=== PATIENT | male | born 1945 | race Caucasian/White ===

== ENCOUNTER → 2021-07-13 | Outpatient (CLI) | payer MEDICARE, BC | LOC: RAD 13:43 | DX: J32.1 Chronic frontal sinusitis (principal); J32.3 Chronic sphenoidal sinusitis; J32.2 Chronic ethmoidal sinusitis ==

== ENCOUNTER 2023-09-06 12:29 | Inpatient (IN) | payer MEDICARE, BC ==
[~2023-09-06] VITALS: Ht 177.8 cm; Wt 95.5 kg
[2023-09-06 13:36] VITALS: BP 148/76
[2023-09-06] MEDS ORDERED: SOTALOL HYDROCH80 MG PO (13:44)
[2023-09-06] MEDS ORDERED: DOXYCYCLINE HY100 M5 PO (13:45)
[2023-09-06] MEDS ORDERED: IPRATROPIUM BROM3 M1 IH (13:47)
[2023-09-06] MEDS ORDERED: DECADRON 4MG TAB4 MG PO (13:48)
[2023-09-06] MEDS ORDERED: ATORVASTATIN CA80 MG PO (13:49)
[2023-09-06] MEDS ORDERED: FLOMAX0.4 MG PO (13:49)
[2023-09-06] MEDS ORDERED: FUROSEMIDE40 MG PO (13:50)
[2023-09-06] MEDS ORDERED: TRELEGY ELLIPT1 EAC1 IH (13:50)
[2023-09-06] MEDS ORDERED: WARFARIN SOD5 MG PO (13:51)
[2023-09-06] MEDS ORDERED: WARFARIN SODIU2.5 MG PO (13:52)
[2023-09-06] MEDS ORDERED: B12 ACTIVE1000 MCG PO (13:54)
[2023-09-06] MEDS ORDERED: C-10001000 MG PO (13:55)
[2023-09-06] MEDS ORDERED: VITAMIN D3 PO (13:59)
--- NOTE | 2023-09-06 15:00 | NUR ---
Spoke with Lenin Savage, he is a pleasant 77 yo male who lives with his in [place], [place]. he states his pcp is dr. [facility] [phone], Cassandra Consultant is Dr. Gonzalez, Dr. Jenkins ([phone]) is his client services director, Ana Cristina is his reconnaissance man. [phone] [facility] [phone] is his pharmacy.
[2023-09-06 16:49] VITALS: BP 150/71
--- NOTE | 2023-09-06 18:56 | NUR ---
Pt arrived via POV this afternoon. Oriented to room, at bedisde. Oriented to rules, meals, diet. Doing well, resting in chair at side of bed. 02 at 3LNC with bubbler attached. Denies pain. Will give report to nightshift nurse who will resume care.
--- NOTE | 2023-09-06 19:23 | NUR ---
Report received from Amy SIMMS. Patient sitting up in recliner watching TV. A/O x4. Denies pain. Oxygen in place at 3L/NC per home routine. Lungs with crackles bilateral bases. Reports NPC at times. No pedal edema noted. Assessment completed. On isolation for droplet precations and 1500 ML FR.
--- NOTE | 2023-09-06 20:59 | NUR ---
Ambulated with SBA, accompanied by DRAG SAWYER around perimeter of inside of building x2. Gait belt and walker, and portable oxygen used. Gait steady. Tolerated well. No cough or SOA noted.
--- NOTE | 2023-09-06 21:17 | NUR ---
Clean catch UA obtained and taken to lab by MIKE.
--- NOTE | 2023-09-07 05:34 | NUR ---
Rested well per report. AM vital signs taken and PO medication taken at this time. Denies pain. Would like a decongestant. Neb tx taken at this time.
[2023-09-07 06:03] VITALS: BP 150/66
--- NOTE | 2023-09-07 06:58 | NUR ---
Report to Chey SIMMS.
[2023-09-07 07:02] LABS: HEMATOCRIT 36.3 % (42.0-52.0); HEMOGLOBIN 11.7 g/dL (13.5-18.0); MEAN CELL VOLUME 101 fl (78-100); MEAN CORPUSCULAR HEMOGLOBIN 33 pg (27-31); MEAN CORPUSCULAR HGB CONC 32 g/dL (33-37); MEAN PLATELET VOLUME 10.5 fl (7.4-10.4); PLATELET COUNT 215 K/mm3 (130-400); RED BLOOD COUNT 3.58 M/mm3 (4.20-5.60); RED CELL DISTRIBUTION WIDTH 14.2 % (11.5-14.5); WHITE BLOOD COUNT 11.8 K/mm3 (4.8-10.8)
[2023-09-07 07:14] LABS: ALBUMIN 3.5 g/dL (3.4-4.8)
[2023-09-07 07:16] LABS: CALCIUM 8.9 mg/dL (8.3-10.5); PROTHROMBIN TIME 28.5 SECONDS (9.0-12.0)
[2023-09-07 07:17] LABS: TOTAL PROTEIN 7.2 g/dL (6.2-8.1)
[2023-09-07 07:19] LABS: TOTAL BILIRUBIN 0.9 mg/dL (0.2-1.2)
[2023-09-07 07:42] LABS: LYMPHOCYTE 4 % (20-51); MONOCYTE 7 % (3-10); NEUTROPHILS 89 % (42-75)
[2023-09-07 07:42] LABS: URINE APPEARANCE TURBID (CLEAR); URINE COLOR YELLOW (YELLOW)
[2023-09-07 07:43] LABS: PH-URINE 5.5 (5.0 - 8.0); URINE BILIRUBIN NEGATIVE (NEGATIVE); URINE BLOOD NEGATIVE (NEGATIVE); URINE GLUCOSE NEGATIVE (NEGATIVE); URINE KETONE NEGATIVE (NEGATIVE); URINE LEUKOCYTE ESTERASE NEGATIVE (NEGATIVE); URINE NITRATE NEGATIVE (NEGATIVE); URINE PROTEIN(semi-quant) 1+ (NEGATIVE); URINE WBC 0-1 /hpf (0-3)
--- NOTE | 2023-09-07 11:20 | NUR ---
A&Ox4, 3L per NC, no c/o pain or discomfort. Reports he slept well last night. Ambulated from bed to chair and chair in hallway. SBA with gait belt and FWW. Tolerated it well. Swallowed pills whole with water. Encouraged to bring home medication in today. Family plans to deliver med. Chair in locked position. Call light within reach.
[2023-09-07 17:16] VITALS: BP 149/72
--- NOTE | 2023-09-07 21:00 | NUR ---
Patient sitting up in recliner watching TV. Ambulated earlier with TIMBER TREATMENT PLANT OPERATOR in hallway. Gait steady with walker. Denies pain at this time. Alert and oriented x 4.
[2023-09-08 05:07] VITALS: BP 116/57
--- NOTE | 2023-09-08 05:17 | NUR ---
Patient reports he slept well this noc.
[2023-09-08 16:15] VITALS: BP 154/77
--- NOTE | 2023-09-08 19:24 | NUR ---
Report received from Deena SIMMS. Ambulated in halls around inside parameter of building x2 with NAIL KEGGER at shift change. Oxygen in place at 3L/NC. Continues to have exertional dyspnea. Denies pain. Lungs CTA. Assessment completed. CPAP here now and set up for night. Remains on 1500 ML FR. Denies questions, wants or needs. Chair alarm on. Call light in reach.
--- NOTE | 2023-09-09 05:24 | NUR ---
States rested "so so" through the night. Up to recliner at this time. Oxygen in place at 3L/NC. Requests coffee. Last dose of PO Doxycycline administered. Requests flonase at this time and given. "helps get the nasal passages open.". Denies further wants or needs.
[2023-09-09 05:28] VITALS: BP 164/72
--- NOTE | 2023-09-09 06:52 | NUR ---
Report to Alva SIMMS.
--- NOTE | 2023-09-09 08:13 | NUR ---
REPORT FROM JASVIR. PT. UP IN CHAIR FOR BREAKFAST. WOULD LIKE TO WEAR HIS OWN COMPRESSION SOCKS TODAY. REPORTS THAT HE NEEDS TO HAVE A "GOOD" BM. STATES HE HAD A SMALL ONE YESTERDAY. DENIES ANY PAIN.
[2023-09-09 17:28] VITALS: BP 138/69; BP_SYST 136
--- NOTE | 2023-09-09 19:30 | NUR ---
Report received from Alva SIMMS. Ambulated in hallway with MIKE, JOSE, with mask donned. Oxygen, gait belt, walker . Tolerated well, Used personal O2 monitor. SAO2 85% at times with ambulation but recovers quickly. Patient states it does that at times.
--- NOTE | 2023-09-09 21:03 | NUR ---
Sitting up in recliner, legs down, Watching TV. Oxygen in place at 3L/NC. Denies pain. Assessment completed. HS medications and breathing tx taken. Denies wants or needs at this time. Remains on droplet isolation and 1500 ML FR.
[2023-09-10 05:40] VITALS: BP 157/75
--- NOTE | 2023-09-10 06:07 | NUR ---
Rested well with CPAP in place. Up to recliner around 0430 per request. Had shower with SBA of COMPOSITE ASSEMBLER. Oxygen in place while in recliner at 3L/NC. Denies pain.
--- NOTE | 2023-09-10 07:00 | NUR ---
RESUMED CARE FROM CHARLES TAY.
--- NOTE | 2023-09-10 07:09 | NUR ---
Report to Allyssa SIMMS.
--- NOTE | 2023-09-10 10:03 | NUR ---
Phuong Ramirez# [phone]. Pcp is Dr. Rodriguez; Lauren Morris. DPOA -[facility]. DME Via [facility]: oxygen, CPAP and walker, concentatro and portable tank, Plan Home with Home Health.
--- NOTE | 2023-09-10 10:53 | NUR ---
Patient resting in chair with visitor at bedside. Stated no pain, legs bilaterally 2+ edema patient wearing his own antiembolitic stockings. Upper extremeties 1+ edema noted. right sided inspriatory and expiratory wheezes, left lower expiratory wheezes. Left upper clear. Patient in chair visitor at bedside with call light in reach.
--- NOTE | 2023-09-10 14:22 | NUR ---
PATIENT REFUSED GAIT BELT TO BATHROOM. EDUCATION PROVIDED.
--- NOTE | 2023-09-10 15:20 | NUR ---
PER ANANDA WILEY AND INFECTIOUS DISEASE - PATIENT TO COME OFF OF PRECAUTIONS AT THIS TIME DUE TO NO RESPIRATORY SYMTPOMS/
[2023-09-10 17:55] VITALS: BP 153/72
--- NOTE | 2023-09-10 18:18 | NUR ---
PATIENT REFUSED USE OF GAITBELT TO BATHROOM AT THIS TIME. EDUCATION PROVIDED.
--- NOTE | 2023-09-10 19:27 | NUR ---
REPORT TO DEMI COUCH.
--- NOTE | 2023-09-11 01:00 | NUR ---
Pt is very much self care but understands he needs to call for someone to be with him when he needs to stand. CPAP was readied for HS. Neb RX was completed through the flutter valve inspirometer as day shift and other RT's have done at other hospitals. pt was up in chair reading from sabas no complaints. pt does have expiratory\inspiratory wheezes which he is has neb rx for.
[2023-09-11 05:44] VITALS: BP 154/78
--- NOTE | 2023-09-11 07:06 | NUR ---
RESUMED CARE FROM DEMI COUCH.
--- NOTE | 2023-09-11 10:10 | NUR ---
Patient alert and oriented, lung sounds clear excpet for lower right which inspiratory wheezes were noted. Bilateral lower extremeties are 3+ edema, bilateral upper extremeties 1+. Patient states no pain, medications given. Patient in chair with call light in reach.
--- NOTE | 2023-09-11 14:15 | NUR ---
[facility] REPORTS NOTED PATIENT HAVING DESATURATION WITH MOVEMENT TO MID 80s TAKING INCREASED TIME TO RECOVER.
[2023-09-11 17:49] VITALS: BP 161/71
--- NOTE | 2023-09-11 18:58 | NUR ---
REPORT TO CHARLES TAY.
--- NOTE | 2023-09-11 19:28 | NUR ---
Report received from Allyssa SIMMS. Patient assisted to BR and back to bed. A/O x4. Denies pain. Oxygen in place at 3L/NC per home baseline. Assessment completed. Remains on 1500 ML FR. Chair alarm on. Call light in reach.
--- NOTE | 2023-09-12 05:34 | NUR ---
Rested well all night. Up this AM, shaved then to recliner per request. Coffee provided per request. Extension tubing added to oxygen per patient request for showering.
[2023-09-12 06:11] VITALS: BP 152/71
--- NOTE | 2023-09-12 06:56 | NUR ---
Report to Allyssa SIMMS.
--- NOTE | 2023-09-12 10:48 | NUR ---
Patient alert and oriented, medications given, edema 3+ to bilateral extremeties, 1+ to upper extremities. no pain reported, patient in chair with call light in reach, OT currently working with patient.
[2023-09-12 18:44] VITALS: BP 143/67
--- NOTE | 2023-09-12 19:20 | NUR ---
REPORT TO CHARLES TAY.
--- NOTE | 2023-09-12 21:37 | NUR ---
Report received from Allyssa SIMMS. Patient sitting up in recliner with oxygen in place at 3L/NC. Ambulated in hallways tonight with MEAT BONER AND SLICER, SBA, walker and gait belt. Steady gait. A/O x4. Denies pain. Assessment completed. HS medications and breathing tx taken. Denies questions, wants or needs.
--- NOTE | 2023-09-13 05:04 | NUR ---
Awake, slept well. Up to recliner. Doing arm exercises with weights. Coffee provided per request. Denies pain or needs. Chair alarm on. Call light in reach.
[2023-09-13 05:32] VITALS: BP 147/64
--- NOTE | 2023-09-13 07:00 | NUR ---
REPORT RECEIVED FROM CHARLES TAY
--- NOTE | 2023-09-13 07:25 | NUR ---
Report to [facility] Hilldinesh SCHAEFERN
--- NOTE | 2023-09-13 10:30 | NUR ---
DISCUSSIONS BEING HAD TO DISCHARGE PATIENT TODAY.
--- NOTE | 2023-09-13 12:00 | NUR ---
DISCHARGE ORDERS RECEIVED.
--- NOTE | 2023-09-13 12:13 | NUR ---
Was advised by provider that the patient wants to go home. I asked Lenin to waive the two day notice and he agreed that he wanted to go home. Advised him that Medicare requires me to give this to him two days prior to discharge. He states understanding and wrote he waives 2 day notice. He and his chose [facility]. Information was faxed to [facility]. Called Yifan at [facility] and she will accept the patient. She will call [phone] to speak with Lenin or his . Spoke with Rachel at [facility] physicians. Discharge information faxed to [facility]. Left voice message with the exceptional children's teacher at [facility] for a follow up appointment. Asked them to Call Lenin for appointment.
--- NOTE | 2023-09-13 12:30 | NUR ---
PATIENT TO DISCHARGE HOME, DISCHARGE INSTRUCTIONS REVIEWED. ALL PATIENT AND SPOUSE QUESTIONS ANSWERED. ALL PATIENT ITEMS AND BELONGINGS SENT WITH PATIENT AT THIS TIME. PATIENT DISCHARGE HOME IN CARE OF VIA WHEELCHAIR.
== END 2023-09-13 12:35 | disposition home or self-care (01) | DRG 947 ==
LOC: MED/SURG 12:29
PROVIDERS: ADMIT Nurse Practitioner
DX: R53.81 Other malaise (principal); J96.21 Acute and chronic respiratory failure with hypoxia; I50.32 Chronic diastolic (congestive) heart failure; I13.0 Hypertensive heart and chronic kidney disease with heart failure and stage 1 through stage 4 chronic kidney disease, or unspecified chronic kidney disease; J44.1 Chronic obstructive pulmonary disease with (acute) exacerbation; N18.9 Chronic kidney disease, unspecified; I27.20 Pulmonary hypertension, unspecified; I48.91 Unspecified atrial fibrillation; I34.0 Nonrheumatic mitral (valve) insufficiency; I25.10 Atherosclerotic heart disease of native coronary artery without angina pectoris; N40.0 Benign prostatic hyperplasia without lower urinary tract symptoms; E78.5 Hyperlipidemia, unspecified; Z79.01 Long term (current) use of anticoagulants; Z95.0 Presence of cardiac pacemaker; Z87.891 Personal history of nicotine dependence